=== PATIENT | female | born 1965 | race Caucasian/White ===

== ENCOUNTER 2016-04-24 07:24 | Observation (INO) | payer OTHER ==
[2016-04-22 11:34] VITALS: BMI 21.2
[~2016-04-24 07:24] MED LIST: DEXAMETHASONE SOD PHOSPHATE 10 MG/ML 1 ML VIAL IV ONE; HEPARIN SODIUM,PORCINE 5,000 UNIT/ML 1 ML VIAL SQ ONE; LACTATED RINGERS 1,000 ML IV SCH; MIDAZOLAM 2 MG/2 ML VIAL IV PRN; ONDANSETRON 4 MG/2 ML VIAL IVP ONE; Pre Op ABX Message 1 EACH MISC MISCELLANE ONE; SCOPOLAMINE 1.5MG/72HR PATCH TRANSDERM ONE
--- NOTE | 2016-04-24 07:49 | P.GSHP ---
History of Present Illness H&P Date: 04/24/16 Chief Complaint: Hyperparathyroidism Patient is a 51-year-old female who was seen in the office with complaints of primary hyperparathyroidism. She has been followed by her figure skater Dr. Marin. Recent calcium of 11.4 was noted. Recent osteoporosis on bone scan was seen. Sestamibi scan shows a hot nodule in the right thyroid bed parathyroid hormone level XCVIII.7 patient has complaints of polydipsia and fatigue. She describes some increased urinary output as well. No voice changes, no dysphagia denies any family history of endocrine disease including hyperparathyroidism. Past Medical History Past Medical History: Hyperlipidemia, Hypertension, Thyroid Disorder Additional Past Medical History / Comment(s): hx migraines, osteoporosis, enlarged parathyriod History of Any Multi-Drug Resistant Organisms: None Reported Past Surgical History: Hysterectomy, Orthopedic Surgery Additional Past Surgical History / Comment(s): left knee arthroscopy, angelita carpal tunnel Past Anesthesia/Blood Transfusion Reactions: No Reported Reaction Past Psychological History: Anxiety Smoking Status: Current every day smoker Past Alcohol Use History: None Reported Additional Past Alcohol Use History / Comment(s): smokes 3 PPD since age 15 Past Drug Use History: None Reported - Past Family History Father Family Medical History: Cancer Brother(s) Family Medical History: Cancer Medications and Allergies Home Medications Medication Instructions Recorded Confirmed Type ALPRAZolam [Xanax] 1 mg PO HS 04/22/16 04/22/16 History Pravastatin Sodium [Pravachol] 20 mg PO HS 04/22/16 04/22/16 History Allergies Allergy/AdvReac Type Severity Reaction Status Date / Time No Known Allergies Allergy Verified 04/22/16 11:25 Surgical - Exam Physical exam: General: Well-developed, well-nourished HEENT: Normocephalic, sclerae nonicteric, no palpable thyroid or neck masses Abdomen: Nontender, nondistended Extremities: No edema Neuro: Alert and oriented Assessment and Plan (1) Hyperparathyroidism Narrative/Plan: The risks and benefits of parathyroid exploration were discussed in detail with the patient. These were noted to include but not limited to bleeding, infection , injury to the recurrent laryngeal or superior laryngeal nerve, voice hoarseness, persistent hypercalcemia, persistent hypocalcemia, recurrent hyperparathyroidism, and inability to find the parathyroid adenoma. It was also discussed that parathyroid hyperplasia is a possibility that could require 3-1/2 gland excision. Limited exploration was discussed as an option. The patient and I agreed that if a prominent adenoma was identified on the right side with a more normal-appearing parathyroid gland on the ipsilateral side that we would not explore the contralateral parathyroid glands. Status: Acute
[2016-04-24 09:09] LABS: Anion Gap 7 mmol/L; Blood Urea Nitrogen 10 mg/dL (7-17); Calcium 11.7 mg/dL (8.4-10.2); Carbon Dioxide 28 mmol/L (22-30); Chloride 109 mmol/L (98-107); Glucose 101 mg/dL (74-99); Non-African American GFR(MDRD) >60 (>60 ml/min/1.73 sqM); Potassium 4.6 mmol/L (3.5-5.1); Sodium 144 mmol/L (137-145)
[2016-04-24] MEDS ORDERED: GLYCOPYRROLATE 0.2 MG/ML 2 ML VIAL ONE (10:25)
[2016-04-24] MEDS ORDERED: SUCCINYLCHOLINE CHLORIDE 100 MG/5 ML SYR IV ONE (10:25)
[2016-04-24] MEDS ORDERED: PROPOFOL 10 MG/ML 20 ML VIAL IV ONE (10:25)
[2016-04-24] MEDS ORDERED: MIDAZOLAM 2 MG/2 ML VIAL ONE (10:25)
[2016-04-24] MEDS ORDERED: ROCURONIUM BROMIDE 10 MG/ML 10 ML VIAL IV ONE (10:25)
[2016-04-24] MEDS ORDERED: NEOSTIGMINE 1 MG/ML 10 ML VIAL ONE (10:25)
[2016-04-24] MEDS ORDERED: ePHEDrine 50 MG/ML 1 ML AMP ONE (10:25)
[2016-04-24] MEDS ORDERED: fentaNYL (PF) 50 MCG/ML 2 ML AMP ONE (10:25)
[2016-04-24] MEDS ORDERED: LIDOCAINE 1% INJ 10MG/ML (20 ML MDV) ONE (10:25)
[2016-04-24] MEDS ORDERED: SODIUM CHLORIDE 0.9% 50 ML with ceFAZolin 1,000 MG IV ONE ×2 (10:43)
[2016-04-24] MEDS ORDERED: BUPIVACAINE (PF) 0.25% 30 ML VIAL SQ ONE (10:51)
[2016-04-24] MEDS ORDERED: LACTATED RINGERS 1,000 ML IV ONE (11:05)
[2016-04-24] MEDS: HYDROmorphone 1 MG/ML 1 ML SYRINGE IVP PRN ×7 (13:25→21:27)
[2016-04-24] MEDS ORDERED: NALOXONE 0.4 MG/ML 1 ML VIAL IV PRN (13:37)
[2016-04-24] MEDS ORDERED: ONDANSETRON 4 MG/2 ML VIAL IVP PRN (13:37)
--- NOTE | 2016-04-24 13:47 | P.OP ---
Date of Procedure: 04/24/16 Procedure(s) Performed: PROCEDURE(S) PERFORMED: PREOPERATIVE DIAGNOSIS: Hyperparathyroidism POSTOPERATIVE DIAGNOSIS: Same PROCEDURE: Parathyroid exploration with parathyroidectomy SURGEON: Barb EBL: 10 mL ANESTHESIA: General COMPLICATIONS: None OPERATIVE PROCEDURE: Patient was placed in the operating table in the supine position. The patient was placed under general anesthesia at that time. The patient was then placed in the beachchair position and the neck was extended. The neck was prepped and draped in usual sterile fashion. The area of the incision had been previously marked with a marking pen in preop. This incision was incised using a scalpel. Dissection down through the subcutaneous tissues took place using electrocautery. The platysmal layer was divided as well using cautery. Flaps were raised beneath the platysmal layer superiorly and inferiorly. The strap muscles were easily identified and in the midline. The underlying thyroid isthmus was visualized. The right side was first addressed. The thyroid was dissected away from the overlying strap muscles using blunt dissection and electrocautery. The lower pole was first inspected. I was able to visualize relatively quickly what appeared to be an appropriately positioned and appropriately sized inferior parathyroid gland. The superior pole was then mobilized leaving the vascular structures intact. I could visualize the appropriate location for the superior parathyroid but could not identify an adenoma in that location. Further inspection of the inferior pole revealed a small lobular structure that was sent to lab and confirmed represent simply a lymph node. The left side was then addressed. Dissection away from the overlying strap muscles then occurred. The inferior pole was identified. The inferior parathyroid gland was thought to be larger than the right inferior parathyroid gland although still not significantly enlarged. This was removed and frozen section did reveal what appeared to represent adenomatous parathyroid gland. I did inspect the superior parathyroid bed on the left. I could visualize what appeared represent a small parathyroid gland there as well. During the course of our dissection the recurrent laryngeal nerves were identified and preserved. I did reinspect both lower poles once again the carotid artery was dissected out. The tracheoesophageal groove bilaterally was inspected as well. Given the fairly extensive dissection and the inability to identify a large adenoma and the fact that our frozen section revealed what appeared represent abnormal parathyroid tissue I aborted the procedure at that point. I did not believe based on the preoperative imaging that we were dealing with a hyperplasia. Therefore 3-1/2 gland excision did not take place. The operative site was inspected for bleeding and none was seen. The strap muscles were reapproximated in the midline using 3-0 Vicryl sutures. The subcutaneous tissues were closed using 4-0 Vicryl sutures and the skin using a running 4-0 Monocryl stitch. Steri-Strips and sterile dressings then applied. DISPOSITION: Stable to recovery room. The operative findings were discussed with the patient's family in detail notifying them that there was a possibility of a missed adenoma in this case. We'll await postoperative lab studies.
[2016-04-24] MEDS ORDERED: MEPERIDINE 50 MG/ML SYRINGE IVP ONE ×2 (14:20→14:30)
[2016-04-24] MEDS: D5-0.45% NACL WITH KCL 20MEQ/L 1,000 ML IV SCH (15:44)
[2016-04-24] MEDS: HEPARIN SODIUM,PORCINE 5,000 UNIT/ML 1 ML VIAL SQ SCH (16:31)
[2016-04-24] MEDS: ALPRAZolam 0.5 MG TAB PO SCH ×2 (17:28→22:06)
[2016-04-24] MEDS: HYDROcodone/APAP 5-325MG 1 EACH TAB PO PRN (20:06)
[2016-04-24] MEDS: FAMOTIDINE 20 MG TAB PO SCH (21:03)
[2016-04-25] MEDS: HYDROcodone/APAP 5-325MG 1 EACH TAB PO PRN ×3 (00:10→10:12)
[2016-04-25] MEDS: HEPARIN SODIUM,PORCINE 5,000 UNIT/ML 1 ML VIAL SQ SCH ×2 (00:11→08:14)
[2016-04-25] MEDS: HYDROmorphone 1 MG/ML 1 ML SYRINGE IVP PRN ×3 (00:20→06:41)
[2016-04-25 07:31] LABS: Anion Gap 4 mmol/L; Blood Urea Nitrogen 6 mg/dL (7-17); Carbon Dioxide 29 mmol/L (22-30); Chloride 107 mmol/L (98-107); Glucose 92 mg/dL (74-99); Magnesium 1.9 mg/dL (1.6-2.3); Non-African American GFR(MDRD) >60 (>60 ml/min/1.73 sqM); Phosphorous 2.7 mg/dL (2.5-4.5); Potassium 4.3 mmol/L (3.5-5.1); Sodium 140 mmol/L (137-145)
[2016-04-25] MEDS: NICOTINE 21MG/24HR PATCH TRANSDERM SCH ×4 (07:38→12:35)
[2016-04-25] MEDS: FAMOTIDINE 20 MG TAB PO SCH (08:14)
[2016-04-25] MEDS: ALPRAZolam 0.5 MG TAB PO SCH ×2 (08:28→08:32)
[2016-04-25 08:37] VITALS: RESP 16
[2016-04-25] MEDS: D5-0.45% NACL WITH KCL 20MEQ/L 1,000 ML IV SCH (09:28)
[2016-04-25 11:41] VITALS: BP 97/56; PULSE 64; TEMP 98.4
--- NOTE | 2016-04-25 13:13 | P.DS ---
Providers Date of admission: 04/24/16 21:46 Expected date of discharge: 04/25/16 Attending physician: Malcolm Day Primary care physician: Rosibel Hsieh - Discharge Diagnosis(es) (1) Hyperparathyroidism Current Visit: Yes Status: Acute Hospital Course: The patient presented for neck exploration and parathyroid resection due to hypercalcemia. She underwent surgery and was monitored overnight. By postop day 1 she was felt to be stable for discharge Procedures: Neck exploration with parathyroid resection Patient Condition at Discharge: Good Plan - Discharge Summary New Discharge Prescriptions: Hydrocodone/Acetaminophen [Washburn 5-325] 1 - 2 each PO Q4HR PRN #30 tab PRN Reason: pain Discharge Medication List ALPRAZolam [Xanax] 1 mg PO HS 04/22/16 [History] Pravastatin Sodium [Pravachol] 20 mg PO HS 04/22/16 [History] Hydrocodone/Acetaminophen [Washburn 5-325] 1 - 2 each PO Q4HR PRN #30 tab 04/24/16 [Rx] Follow up Appointment(s)/Referral(s): Malcolm Day MD [Medical Doctor] - 1 Week Activity/Diet/Wound Care/Special Instructions: Have labs drawn on Wednesday, per script regular diet as tolerated. drink fluids. Call office with any fever, chills, increased redness or discolored drainage from incision, increased pain not covered by pain meds or any concerns. leave steri strips in place. No strenuous activity. no driving while on narcotics. Last received one Washburn 5/325 at [address] [facility] [employer] Discharge Disposition: HOME SELF-CARE
== END 2016-04-25 13:25 | disposition home or self-care (01) ==
LOC: OR 07:24 → 6PED 13:17 → OR 21:46
PROVIDERS: ADMIT Surgery; ATTEND Surgery
DX: E21.0 Primary hyperparathyroidism (principal); M81.0 Age-related osteoporosis without current pathological fracture; I10 Essential (primary) hypertension; E78.5 Hyperlipidemia, unspecified; F17.200 Nicotine dependence, unspecified, uncomplicated
CPT/HCPCS: 88305; 80048 ×2; 82310; 83735; 84100; 88331; 60500; G0378 ×2; S4990; J2250; J1644 ×2; J1100; J2710; J2175; J2405 ×2; J0690; J2001; J3010; J1170 ×2; J0330; J2704; 96372; 96375; 96376

== ENCOUNTER → 2016-04-27 | Outpatient (CLI) | payer OTHER ==
[2016-04-27 12:34] LABS: Anion Gap 8 mmol/L; Blood Urea Nitrogen 11 mg/dL (7-17); Calcium 12.4 mg/dL (8.4-10.2); Carbon Dioxide 29 mmol/L (22-30); Chloride 103 mmol/L (98-107); Glucose 103 mg/dL (74-99); Magnesium 1.9 mg/dL (1.6-2.3); Non-African American GFR(MDRD) >60 (>60 ml/min/1.73 sqM); Phosphorous 3.4 mg/dL (2.5-4.5); Potassium 4.4 mmol/L (3.5-5.1); Sodium 140 mmol/L (137-145)
== END | disposition home or self-care (01) ==
LOC: LABWHC1 11:17
PROVIDERS: ATTEND Surgery
DX: E21.3 Hyperparathyroidism, unspecified (principal)
CPT/HCPCS: 36415; 80048; 83735; 84100

== ENCOUNTER → 2016-05-04 | Outpatient (CLI) | payer OTHER | END | disposition home or self-care (01) | LOC: LABWHC1 10:43 | PROVIDERS: ATTEND Surgery | DX: E21.3 Hyperparathyroidism, unspecified (principal) | CPT/HCPCS: 36415; 83970 ==

== ENCOUNTER → 2017-05-14 | Outpatient (CLI) | payer OTHER ==
--- NOTE | 2017-05-17 11:37 | MM ---
Reason for exam: screening (asymptomatic). Last mammogram was performed 1 year and 9 months ago. Physical Findings: A clinical breast exam by your physician is recommended on an annual basis and results should be correlated with mammographic findings. MG Screening Mammo w CAD Bilateral CC and MLO view(s) were taken. Prior study comparison: August 23, 2015, bilateral MG 3d screening mammo w/cad. May 10, 2006, bilateral screening mammogram w/CAD. The breast tissue is heterogeneously dense. This may lower the sensitivity of mammography. Focal asymmetry upper outer left breast 6.4cm from nipple. This finding is changed when compared with previous exams. ASSESSMENT: Incomplete: need additional imaging evaluation, BI-RAD 0 RECOMMENDATION: Special view mammogram of the left breast. If lesion persists on supplemental views, image directed ultrasound is recommended. [facility] will attempt to contact patient to return for supplemental views and ultrasound if indicated.
== END ==
LOC: RADMAMWWP 07:53
PROVIDERS: ATTEND Family Medicine
DX: Z12.31 Encounter for screening mammogram for malignant neoplasm of breast (principal)
CPT/HCPCS: 77067

== ENCOUNTER → 2017-05-18 | Outpatient (CLI) | payer OTHER ==
--- NOTE | 2017-05-18 09:43 | MM ---
Reason for exam: additional evaluation requested from abnormal screening. Last mammogram was performed less than 1 month ago. Physical Findings: Nurse did not find any significant physical abnormalities on exam. MG Work Up Mamm w CAD LT Spot compression CC, spot compression MLO, and LM view(s) were taken of the left breast. Prior study comparison: May 14, 2017, bilateral MG screening mammo w CAD. August 23, 2015, bilateral MG 3d screening mammo w/cad. There is no discrete abnormality including area of concern. These results were verbally communicated with the patient and result sheet given to the patient on 05/18/17. ASSESSMENT: Negative, BI-RAD 1 RECOMMENDATION: Return to routine screening mammogram schedule for both breasts.
== END | disposition home or self-care (01) ==
LOC: RADMAMWWP 08:56
PROVIDERS: ATTEND Family Medicine
DX: R92.8 Other abnormal and inconclusive findings on diagnostic imaging of breast (principal)
CPT/HCPCS: 77065

== ENCOUNTER → 2020-11-26 | Outpatient (CLI) | payer SELFPAY ==
[2020-11-27 01:16] LABS: Basophils # (A) 0.06 X 10*3/uL (0.00-0.10); Basophils % (A) 0.8 %; Eosinophils # (A) 0.18 X 10*3/uL (0.04-0.35); Eosinophils % (A) 2.3 %; HCT 44.6 % (37.2-46.3); HGB 14.2 g/dL (12.0-15.0); Lymphocytes # (A) 2.68 X 10*3/uL (0.90-5.00); Lymphocytes % (A) 34.9 %; MCH 31.1 pg (27.0-32.0); MCHC 31.8 g/dL (32.0-37.0); MCV 97.6 fL (80.0-97.0); Mean Platelet Volume 11.1 fL (9.5-12.2); Monocytes # (A) 0.46 X 10*3/uL (0.20-1.00); Neutrophils % (A) 55.9 %; Platelet Count 280 X 10*3/uL (140-440); RBC 4.57 X 10*6/uL (4.10-5.20); RDW 13.6 % (11.5-14.5); WBC 7.69 X 10*3/uL (4.50-10.00)
[2020-11-27 05:46] LABS: African American GFR (CKD) 95.5 (60.0-200.0); Albumin 4.5 g/dL (3.80-4.90); Albumin/Globulin Ratio 1.61 (1.60-3.17); Chol/HDL Ratio 3.67; Globulin 2.8 g/dL (1.6-3.3); LDL Cholesterol,Calculated 125.8 mg/dL (0.0-131.0); Non-African American GFR(CKD) 82.4 (60.0-200.0); Potassium 4.1 mmol/L (3.5-5.5); Total Bilirubin 0.5 mg/dL (0.2-1.2); Total Protein 7.3 g/dL (6.2-8.2); VLDL Calculation 21.2 mg/dL (5.00-40.00)
== END | disposition home or self-care (01) ==
LOC: LABWHC1 15:18
PROVIDERS: ATTEND Family Medicine
DX: Z13.29 Encounter for screening for other suspected endocrine disorder (principal); E78.00 Pure hypercholesterolemia, unspecified
CPT/HCPCS: 36415; 80053; 80061; 84443; 85025

== ENCOUNTER → 2022-02-24 | Outpatient (CLI) | payer SELFPAY ==
--- NOTE | 2022-02-24 10:53 | MM ---
Reason for Exam: Screening (asymptomatic). Last mammogram was performed 1 year(s) and 1 month(s) ago. Patient History: Menarche at age 13. First Full-Term at age 16. Right ovary removed at age 31. Hysterectomy at age 31. Postmenopausal. Risk Values: Madeline 5 year model risk: 0.9%. NCI Lifetime model risk: 5.1%. Prior Study Comparison: 05/14/2017 Bilateral Screening Mammogram, [facility]. 05/18/2017 Left Diagnostic Mammogram, [facility]. 02/06/2021 Bilateral Screening Mammogram, [facility]. Tissue Density: The breast tissue is heterogeneously dense. This may lower the sensitivity of mammography. Findings: Analyzed By CAD. There are a few scattered tiny benign-appearing round calcifications bilaterally redemonstrated. There is 12 mm focal asymmetry in the middle to posterior depth left breast slightly upper aspect on the MLO view that is more prominent from prior studies. Overall Assessment: Incomplete: need additional imaging evaluation, BI-RAD 0 Management: Special View Mammogram of the left breast. Return for additional views left breast. Summation density versus true lesion. Electronically signed and approved by: Thony Harris M.D.
== END | disposition home or self-care (01) ==
LOC: RADMAMWWP 07:38
PROVIDERS: ATTEND Family Medicine
DX: Z12.31 Encounter for screening mammogram for malignant neoplasm of breast (principal); Z78.0 Asymptomatic menopausal state; Z90.721 Acquired absence of ovaries, unilateral
CPT/HCPCS: 77067

== ENCOUNTER → 2022-02-26 | Outpatient (CLI) | payer SELFPAY ==
--- NOTE | 2022-02-26 14:48 | MM ---
Reason for Exam: Additional evaluation requested from abnormal screening. Last screening mammogram was performed less than 1 month ago. Patient History: Menarche at age 13. First Full-Term at age 16. Right ovary removed at age 31. Hysterectomy at age 31. Postmenopausal. Risk Values: Madeline 5 year model risk: 0.9%. NCI Lifetime model risk: 5.1%. Prior Study Comparison: 05/18/2017 Left Diagnostic Mammogram, [facility]. 02/06/2021 Bilateral Screening Mammogram, [facility]. 02/24/2022 Bilateral MG screening mammo w CAD, [facility]. Tissue Density: Left: The breast tissue is heterogeneously dense. This may lower the sensitivity of mammography. Findings: Analyzed By CAD. The posteriorly located asymmetric density on the MLO view disperses on spot 3-D images. Findings compatible with superimposition shadow. Overall Assessment: Benign, BI-RAD 2 Management: Screening Mammogram of both breasts in 1 year. 1. Patient should continue monthly self breast exams. 2. A clinical breast exam by your physician is recommended on an annual basis. 3. This exam should not preclude additional follow-up of suspicious palpable abnormalities. Results were given to the patient verbally at the time of exam. Electronically signed and approved by: Elvis Meyers M.D. Radiologist
== END | disposition home or self-care (01) ==
LOC: RADMAMWWP 14:14
PROVIDERS: ATTEND Family Medicine
DX: R92.8 Other abnormal and inconclusive findings on diagnostic imaging of breast (principal); Z78.0 Asymptomatic menopausal state
CPT/HCPCS: 77061; 77065

== ENCOUNTER → 2022-04-16 | Outpatient (CLI) | payer SELFPAY ==
--- NOTE | 2022-04-16 09:31 | CTL ---
EXAMINATION TYPE: CT Low Dose Lung DATE OF EXAM ORDERED: 04/16/2022 HISTORY: Z87.891 Personal History of Tobacco Use. Lung cancer screening CT DLP: 57.[address] CTDI: 1.5 mGy Automated exposure control for dose reduction was used. SCREENING VISIT: First screening visit. COMPARISON: Chest radiograph 12/31/2015 TECHNIQUE: Low dose computed tomography scan was performed through the chest at 1 mm thick sections a nd reconstructed images in multiple planes at 1 mm and [address] DIAGNOSTIC QUALITY: Satisfactory FINDINGS: LUNG NODULES: 5 mm elongated nodule along the right minor fissure (series 4, image 166). Right midlun g 6 mm pleural-based nodule (series 4, image 180). Peripheral left lower lobe nodular density measuri ng up to 7 mm (series 4, image 226). LUNGS: COPD: Severity: Moderate Fibrosis: Severity: None Lymph nodes: None Other findings: None RIGHT PLEURAL SPACE: Effusion: None Calcification: None Thickening: Apical pleural-parenchymal scarring Pneumothorax: None LEFT PLEURAL SPACE: Effusion: None Calcification: None Thickening: Apical pleural-parenchymal scarring Pneumothorax: None HEART: Heart Size: Normal Coronary Calcification: None Pericardial Effusion: None OTHER FINDINGS: Upper abdomen: None Bony thorax: None Supraclavicular region: Surgical clips posterior to the right thyroid lobe. Other: None IMPRESSION: 1. Few pulmonary nodules measuring up to 7 mm. 2. Moderate COPD changes. CT LUNG RAD AND CT CHEST RECOMMENDATION: Lung-Rad 3 Probably Benign: 6 month follow-up LDCT. S Modifier (other clinically significant findings): None
== END | disposition home or self-care (01) ==
LOC: RADCTMAIN 07:53
PROVIDERS: ATTEND Family Medicine
DX: Z12.2 Encounter for screening for malignant neoplasm of respiratory organs (principal); J44.9 Chronic obstructive pulmonary disease, unspecified; R91.1 Solitary pulmonary nodule; Z87.891 Personal history of nicotine dependence
CPT/HCPCS: 71271

== ENCOUNTER → 2023-08-16 | Outpatient (CLI) | payer SELFPAY ==
--- NOTE | 2023-08-16 09:34 | CTL ---
EXAMINATION TYPE: CT Low Dose Lung DATE OF EXAM: 08/16/2023 8:11 AM CLINICAL INDICATION:Female, 58 years old with history of Z87.891 personal hx tobacco use; smoker , hi story of tobacco use. COMPARISON: 04/16/2022. TECHNIQUE: Multiple axial non-contrast scans were obtained from approximately the lung apices through the upper abdomen. Coronal and sagittal reformatted images were obtained. Low dose technique was uti lized. CT DLP: 44.4 mGycm, Automated exposure control for dose reduction was used. CT Contrast: Contrast used: None Oral contrast used: None FINDINGS: ======== Lack of intravenous contrast and low dose technique limits the evaluation of the vascular and soft ti ssue structures. LUNGS: No evidence of pulmonary fibrosis. No evidence of focal consolidation, pneumothorax or pleural effusion. Moderate centrilobular emphysema changes most pronounced in the lung apices. Nodules: RUL: 8 mm series 4 image 89, previously 3 mm RML: 6 mm series 4 image 186 RLL: A small pulmonary nodules, examples include 3 mm image 231, 5 mm image 222, 4 mm image 227, other small nodules visualized. MICHAEL: Scattered pulmonary nodules examples include 4 mm image 164, 5 mm image 148 3 mm image 50 LLL: Scattered small nodules sample 4 mm image 138 3 mm image 206. AIRWAY: Patent and unremarkable. HEART: Size within normal limits. MEDIASTINUM: No gross evidence of adenopathy. VASCULATURE: No aortic aneurysm. MUSCULOSKELETAL: No acute osseous abnormalities SOFT TISSUES/LYMPH NODES: Unremarkable. LOWER NECK: No significant findings. UPPER ABDOMEN: No significant findings. IMPRESSION: 1. Increasing right upper lobe pulmonary nodule. Further evaluation with PET/CTs recommended. 2. Additional scattered small pulmonary nodules throughout the lungs which are relatively stable. 3. Moderate emphysema. CT LUNG RAD AND CT CHEST RECOMMENDATION: Lung-Rad 4A Suspicious: Follow-up 3 month LDCT or PET/CT may be used when there is a > 8 mm solid component. S Modifier (other clinically significant findings): None Recommend smoking cessation (if current smoker), or continuation of smoking cessation (if prior smoke r). Annual screening for lung cancer with low-dose computed tomography is recommended in adults ages 55 to 77 years who have a 30 pack-year smoking history and currently smoke or have quit within the pa st 15 years. Screening should be discontinued once a person has not smoked for 15 years or develops a health problem that substantially limits life expectancy or the ability or willingness to have curat elton lung surgery. Lung rads 2021 [email or web address]
== END | disposition home or self-care (01) ==
LOC: RADCTMAIN 07:32
PROVIDERS: ATTEND Family Medicine
DX: Z12.2 Encounter for screening for malignant neoplasm of respiratory organs (principal); J43.2 Centrilobular emphysema; R91.8 Other nonspecific abnormal finding of lung field; F17.210 Nicotine dependence, cigarettes, uncomplicated
CPT/HCPCS: 71271

== ENCOUNTER → 2023-11-25 | Outpatient (CLI) | payer SELFPAY ==
--- NOTE | 2023-12-19 09:09 | CTL ---
Site ID [facility] Surya Herrera L ID [id number] 1965 Age/Gender: 58Y, F Order # N/A Procedure CT LOW DOSE LUNG CANCER SCREENING Date 11/25/2023 7:18:00 AM EXAMINATION TYPE: CT Low Dose Lung DATE OF EXAM ORDERED: 12/03/2023 HISTORY: Personal history of nicotine dependence, current smoker, 52.5 pack year history. Lung cancer screening CT DLP: 48.[address] CTDI: 1.30 mGy Automated exposure control for dose reduction was used. SCREENING VISIT: Follow-up COMPARISON: CT Low Dose Lung contains a screening 08/16/2023, 04/16/2022 TECHNIQUE: Low dose computed tomography scan was performed through the chest at 1 mm thick sections a nd reconstructed images in multiple planes at 1 mm and [address] DIAGNOSTIC QUALITY: Satisfactory FINDINGS: Nodules: Increasing size of 8.9 mm right upper lobe pulmonary nodule (series 4, image 91), previously 7.8 mm Stable lingular 6.2 mm pulmonary nodule (series 6, image 40). New right lower lobe at 9.6 mm nodular density (series 6, image 40). New right middle lobe 6.8 mm groundglass opacity adjacent to the minor fissure (series 6, image 40). Stable anterior right middle lobe pleural-based 6.2 mm solid pulmonary nodule (series 6, image 37). Stable 7.5 mm solid nodule along the right minor fissure (series 6 image 34). Intrafissural lymph node along the left major fissure (series 6, image 27). Previously seen left upper lobe 2.6 by report nodules no longer visualized. LUNGS: COPD: Severity: Moderate Fibrosis: Severity: None Lymph nodes: None Other findings: Biapical pleural parenchymal scarring. Fat filled right Bochdalek hernia. Left Bochda lek hernia containing portion of the left kidney. RIGHT PLEURAL SPACE: Effusion: None Calcification: None Thickening: None Pneumothorax: None LEFT PLEURAL SPACE: Effusion: None Calcification: None Thickening: None Pneumothorax: None HEART: Heart Size: Normal Coronary Calcification: None Pericardial Effusion: None OTHER FINDINGS: Upper abdomen: None Bony thorax: None Supraclavicular region: Surgical clips along the posterior aspect of the right lower lobe. Other: None IMPRESSION: 1. Increasing size of right upper lobe 8.9 mm solid pulmonary nodule, previously 7.8 mm. 2. Few additional new nodular densities within the right lung measuring up to 9.6 mm. Additional cary ining nodules are grossly stable. CT LUNG RAD AND CT CHEST RECOMMENDATION: Lung-Rad 4A Suspicious: Follow-up 3 month LDCT or PET/CT may be used when there is a > 8 mm solid component. S Modifier (other clinically significant findings): None
== END | disposition home or self-care (01) ==
LOC: RADCTMAIN 06:55
PROVIDERS: ATTEND Family Medicine
DX: Z12.2 Encounter for screening for malignant neoplasm of respiratory organs (principal); F17.210 Nicotine dependence, cigarettes, uncomplicated; R91.8 Other nonspecific abnormal finding of lung field; J98.4 Other disorders of lung
CPT/HCPCS: 71271

== ENCOUNTER → 2024-02-28 | Outpatient (CLI) | payer SELFPAY ==
--- NOTE | 2024-02-28 11:42 | CTL ---
EXAMINATION TYPE: CT Low Dose Lung DATE OF EXAM ORDERED: 02/28/2024 COMPARISON: CT Low Dose Lung 12/15/2023, 08/16/2023, 04/16/2022 CLINICAL INDICATION: Female, 59 years old with history of Z12.2 ENCNTR SCREEN FOR MALIGNANT NEOPLASM OF RESP; PHH, tobacco user, Lung cancer screening, History of Smoking/tobacco use. TECHNIQUE: Low dose computed tomography scan was performed through the chest at 1 mm thick sections a nd reconstructed images in multiple planes at 1 mm and [address] DLP: 45.[address] CTDI: 1.3 mGy Automated exposure control for dose reduction was used. CT DIAGNOSTIC QUALITY: Satisfactory FINDINGS: Nodules: Marginal increase in size of solitary right upper lobe 9.6 mm pulmonary nodule, previously 8.9 mm (se lizz 6, image 18). Decreased size of right anterior midlung pulmonary nodule measuring 5.3 mm, previously 7.5 mm (series 6, image 34). Decreased size of pleural-based right anterior midlung 5 mm pulmonary nodule, previously 6.2 mm (seri es 6, image 37). Decreased size of anterior right lower lobe 3.7 mm pulmonary nodular density, previously 6.8 mm (seri es 6, image 40). Decreased size of posterior right lower lobe pulmonary nodular density measuring 5.3 mm, previously 9 .6 mm (series 6, image 40). No new pulmonary nodules. LUNGS: COPD: Severity: Moderate Fibrosis: Severity: None Lymph nodes: None Other findings: Biapical pleural parenchymal scarring. Fat filled right Bochdalek hernia. Left Bochda lek hernia containing portion of the left kidney. RIGHT PLEURAL SPACE: Effusion: None Calcification: None Thickening: None Pneumothorax: None LEFT PLEURAL SPACE: Effusion: None Calcification: None Thickening: None Pneumothorax: None HEART: Heart Size: Normal Coronary Calcification: None Pericardial Effusion: None OTHER FINDINGS: Upper abdomen: None Bony thorax: None Supraclavicular region: Surgical clips along the posterior aspect of the right thyroid lobe. Other: None IMPRESSION: 1. Marginal increase in size of solid right upper lobe 9.6 mm pulmonary nodule, previously 8.9 mm. Re commend further evaluation with PET/CT. 2. Remaining previously seen pulmonary nodules are marginally decreased in size from prior exam. 3. Moderate COPD changes. CT LUNG RAD AND CT CHEST RECOMMENDATION: Lung-Rad 4A Suspicious: Follow-up 3 month LDCT or PET/CT may be used when there is a > 8 mm solid component. S Modifier (other clinically significant findings): None [facility], , 02/28/2024 11:40 AM
== END | disposition home or self-care (01) ==
LOC: RADCTMAIN 10:47
PROVIDERS: ATTEND Family Medicine
DX: Z12.2 Encounter for screening for malignant neoplasm of respiratory organs (principal); R91.8 Other nonspecific abnormal finding of lung field; J44.9 Chronic obstructive pulmonary disease, unspecified; F17.210 Nicotine dependence, cigarettes, uncomplicated
CPT/HCPCS: 71271